=== PATIENT | female | born 1990 | race Caucasian/White ===

== ENCOUNTER 2017-08-14 21:21 | Emergency (ER) | payer SELFPAY, OTHER ==
[2017-08-14] MEDS: ONDANSETRON (ODT) 4 MG TAB ODT (23:42)
[2017-08-14] MEDS: ACETAMINOPHEN 325 MG TAB PO (23:42)
[2017-08-14] MEDS: KETOROLAC 60 MG INJ IM (23:45)
== END 2017-08-14 23:55 | disposition home or self-care (01) ==
LOC: FTE 23:55
DX: R11.10 Vomiting, unspecified (principal); R05 Cough; R50.9 Fever, unspecified; J02.9 Acute pharyngitis, unspecified
CPT/HCPCS: 96372; 99284-25; J1885

== ENCOUNTER 2018-06-20 13:52 | Emergency (ER) | payer MEDICAID, OTHER | END 2018-06-20 15:40 | disposition home or self-care (01) | LOC: FTE 13:52 | DX: R51 Headache (principal) | CPT/HCPCS: 99283; Z7502 ==

== ENCOUNTER 2018-10-17 20:56 | Emergency (ER) | payer SELFPAY, MEDICAID ==
[2018-10-17 21:26] LABS: ADD MAN DIFF? NO
[2018-10-17] MEDS: SODIUM CHLORIDE 0.9% 1L BAG IV* (21:27)
[2018-10-17 21:32] LABS: BASOPHILS % 0.4 % (0.0-2.0); EOSINOPHILS # 0.1 10^3/ul (0.0-0.5); HEMATOCRIT 40.9 % (37.0-47.0); HEMOGLOBIN 13.5 g/dl (12.0-16.0); LYMPHOCYTES # 0.9 10^3/ul (0.8-2.9); LYMPHOCYTES % 12.8 % (15.0-51.0); MEAN CORPUSCULAR HEMOGLOBIN 28.2 pg (29.0-33.0); MEAN CORPUSCULAR VOLUME 85.6 fl (82.0-101.0); MEAN PLATELET VOLUME 11.8 fl (7.4-10.4); MONOCYTE # 0.6 10^3/ul (0.3-0.9); MONOCYTES % 8.2 % (0.0-11.0); NEUTROPHIL # 5.4 10^3/ul (1.6-7.5); NEUTROPHILS % 77.2 % (39.0-77.0); PLATELET COUNT 204 10^3/UL (140-415); RED BLOOD COUNT 4.78 10^6/ul (4.20-5.40); RED CELL DISTRIBUTION WIDTH 12.4 % (11.5-14.5)
[2018-10-17 21:51] LABS: INR 0.96; PROTIME 12.9 Sec (11.9-14.9)
[2018-10-17 21:52] LABS: PARTIAL THROMBOPLASTIN TIME 33.8 Sec (23.0-35.0)
[2018-10-17 22:02] LABS: ALANINE AMINOTRANSFERASE 18 IU/L (13-69); ALBUMIN 4.6 g/dl (3.3-4.9); ALBUMIN/GLOBULIN RATIO 1.15; ALKALINE PHOSPHATASE 70 IU/L (42-121); ANION GAP 13 (5-13); ASPARTATE AMINO TRANSFERASE 23 IU/L (15-46); BLOOD UREA NITROGEN 7 mg/dl (7-20); CALCIUM 9.1 mg/dl (8.4-10.2); CARBON DIOXIDE 24 mmol/L (21-31); CHLORIDE 103 mmol/L (97-110); CREATININE 0.69 mg/dl (0.44-1.00); Estimated GFR > 60 mL/min (>60); GLUCOSE 144 mg/dl (70-220); POTASSIUM 3.5 mmol/L (3.5-5.1); SODIUM 140 mmol/L (135-144); TOTAL PROTEIN 8.6 g/dl (6.1-8.1)
[2018-10-17] MEDS: ACETAMINOPHEN 325 MG TAB PO (22:10)
[2018-10-17 22:12] LABS: TROPONIN-I < 0.012 ng/ml (0.000-0.120)
[2018-10-17] MEDS: KETOROLAC 15 MG INJ IV (22:18)
[2018-10-17 22:36] LABS: ADD UMIC YES; UR ASCORBIC ACID 20 mg/dL (NEGATIVE); UR BACTERIA FEW /HPF (NONE SEEN); UR BILIRUBIN (Dip) NEGATIVE (NEGATIVE); UR BLOOD (Dip) NEGATIVE (NEGATIVE); UR CLARITY CLOUDY (CLEAR); UR COLOR AMBER (YELLOW); UR GLUCOSE (Dip) NEGATIVE (NEGATIVE); UR KETONES (Dip) NEGATIVE (NEGATIVE); UR LEUKOCYTE ESTERASE (Dip) TRACE Leu/ul (NEGATIVE); UR MUCUS MANY /HPF (NONE SEEN); UR NITRITE (Dip) NEGATIVE (NEGATIVE); UR RBC 1 /HPF (0-5); UR SPECIFIC GRAVITY (Dip) 1.027 (1.003-1.030); UR SQUAMOUS EPITHELIAL CELL MODERATE /HPF (FEW); UR TOTAL PROTEIN (Dip) 1+ mg/dl (NEGATIVE); UR UROBILINOGEN (Dip) 2+ mg/dL (NEGATIVE); UR WBC 7 /HPF (0-5)
[2018-10-17 23:52] LABS: LACTIC ACID 0.9 mmol/L (0.5-2.0)
== END 2018-10-18 01:13 | disposition home or self-care (01) ==
LOC: E/R 10-18 01:13
DX: J06.9 Acute upper respiratory infection, unspecified (principal); R00.0 Tachycardia, unspecified; R40.2142 Coma scale, eyes open, spontaneous, at arrival to emergency department; R40.2362 Coma scale, best motor response, obeys commands, at arrival to emergency department; R40.2252 Coma scale, best verbal response, oriented, at arrival to emergency department
CPT/HCPCS: 36415; 71045; 80053; 81001; 81025; 83605; 84484; 85025; 85610; 85730; 87040-91; 87086; 93005; 96374; 99285-25

== ENCOUNTER 2018-12-22 22:14 | Emergency (ER) | payer SELFPAY ==
[2018-12-22] MEDS: IPRATROPIUM (NEB) 0.5 MG/2.5 ML AMP NEB (22:52)
[2018-12-22] MEDS: ALBUTEROL 0.083% (NEB) 2.5 MG/3 ML AMP NEB (22:52)
[2018-12-22] MEDS: METHYLPREDNISOLONE 125 MG INJ IM (23:02)
[2018-12-22] MEDS: ONDANSETRON 4 MG INJ IM (23:02)
== END 2018-12-23 00:24 | disposition home or self-care (01) ==
LOC: FTE 22:14
DX: R06.02 Shortness of breath (principal)
CPT/HCPCS: 71045; 94664; 96372; 99284-25